=== PATIENT | male | born 1970 | race Caucasian/White ===

== ENCOUNTER 2024-09-21 09:14 | Day surgery (SDC) | payer BC ==
[2024-09-19 16:28] VITALS: BMI 31.9
[2024-09-21] MEDS ORDERED: ONDANSETRON 4 MG/2 ML VIAL IVPUSH PRN (10:14)
[2024-09-21] MEDS ORDERED: LACTATED RINGERS SOLUTION 1,000 ML IV SCH (10:15)
[2024-09-21] MEDS ORDERED: MIDAZOLAM HCL 2 MG/2 ML SINGLE DOSE VIAL ONE (10:41)
[2024-09-21] MEDS ORDERED: PROPOFOL 20 ML ONE (10:41)
[2024-09-21] MEDS ORDERED: ceFAZolin SODIUM 1 GM VIAL ONE ×2 (11:28)
[2024-09-21] MEDS ORDERED: DEXAMETHASONE SOD PHOSPHATE 4 MG/1 ML VIAL ONE (11:29)
[2024-09-21] MEDS ORDERED: ONDANSETRON 4 MG/2 ML VIAL ONE (11:29)
[2024-09-21] MEDS ORDERED: KETOROLAC TROMETHAMINE 30 MG/1 ML VIAL ONE (11:29)
[2024-09-21] MEDS ORDERED: ACETAMINOPHEN INJECTION 100 ML ONE (12:20)
[2024-09-21] MEDS: ACETAMINOPHEN 1000 MG/100 ML BAG IVPB ONE (12:30)
[2024-09-21 13:02] VITALS: RESP 16
[2024-09-21 13:58] VITALS: TEMP 96.7
[2024-09-21 14:12] VITALS: BP 124/71; PULSE 62
== END 2024-09-21 13:45 | disposition home or self-care (01) ==
LOC: FASU 09:14
PROVIDERS: ATTEND Urology
PROC: 0VB03ZX Excision of Prostate, Percutaneous Approach, Diagnostic (ICD-10-PCS; principal; 2024-09-21 11:33)
DX: R97.20 Elevated prostate specific antigen [PSA] (principal)
CPT/HCPCS: 76872-TC; 88305-TC; 94760; J0131